=== PATIENT | female | born 1960 | race Two or more races ===

== ENCOUNTER 2023-08-23 09:19 | Inpatient (IN) | payer OTHER ==
[2023-08-23] MEDS ORDERED: ACETAMINOPHEN 1000 MG/100 ML BAG IVPB ONE (10:42)
[2023-08-23] MEDS ORDERED: ONDANSETRON 4 MG/2 ML VIAL IVPUSH ONE (10:42)
[2023-08-23] MEDS ORDERED: ONDANSETRON 4 MG/2 ML VIAL ONE (11:00)
[2023-08-23] MEDS ORDERED: ACETAMINOPHEN INJECTION 100 ML IVPB ONE (11:00)
[2023-08-23 11:33] LABS: BASO % 0.4 % (0-2.0); EOS % 2.1 % (0-4.5); HEMATOCRIT 42.1 % (32.4-45.2); HEMOGLOBIN 14.5 GM/dL (10.7-15.3); LYMPH % 15.4 % (8-40); MCH 30.3 pg (25.7-33.7); MCHC 34.4 g/dl (32.0-36.0); MEAN PLT VOLUME 8.4 fl (7.5-11.1); MONO % 8.4 % (3.8-10.2); NEUT % 73.7 % (42.8-82.8); PLATELET COUNT 174 10^3/uL (134-434); RBC 4.78 M/mm3 (3.60-5.2); RDW 14.1 % (11.6-15.6); WHITE BLOOD COUNT 10.4 K/mm3 (4.0-10.0)
[2023-08-23 12:16] LABS: POTASSIUM 4.2 mmol/L (3.5-5.1)
[2023-08-23 12:17] LABS: ALBUMIN 3.3 g/dl (3.4-5.0); BLOOD UREA NITROGEN 16.3 mg/dL (7-18); MAGNESIUM 2.1 mg/dL (1.8-2.4)
[2023-08-23 12:20] LABS: CREATININE 0.9 mg/dL (0.55-1.3)
[2023-08-23 12:21] LABS: BILIRUBIN,TOTAL 0.8 mg/dL (0.2-1); TOT PROT 7.1 g/dl (6.4-8.2)
[2023-08-23 12:23] LABS: EPI CELLS 29 /uL (0-25.1); HYALINE CASTS 0 /uL (0-3.1); PH,URINE 6.5 (5.0-8.0); URINE APPEARANCE CLOUDY; URINE BACTERIA 268 /uL (0-1359); URINE BILIRUBIN NEGATIVE (NEGATIVE); URINE COLOR YELLOW; URINE GLUCOSE (UA) 3+ (NEGATIVE); URINE KETONE TRACE (NEGATIVE); URINE LEUK ESTERASE NEGATIVE (NEGATIVE); URINE NITRITE NEGATIVE (NEGATIVE); URINE PROTEIN 1+ (NEGATIVE); URINE RBC 175 /uL (0-23.9)
[2023-08-23 14:18] VITALS: BMI 36.4
[2023-08-23 14:36] LABS: URINE WBC 78.8 /uL (0-25.8)
[2023-08-23] MEDS ORDERED: PIPERACILLIN/TAZOB 4.5 GM 4.5 GM in DEXTROSE 5%-WATER - 100 ML IVPB ONE (14:36)
[2023-08-23] MEDS ORDERED: KETOROLAC TROMETHAMINE 15 MG/ML VIAL IVPUSH ONE (14:41)
[2023-08-23] MEDS ORDERED: PIPERACILLIN/TAZOB 4.5 GM 4.5 GM/100 ML BAG IVPB ONE (15:53)
[2023-08-23] MEDS ORDERED: KETOROLAC TROMETHAMINE 30 MG/1 ML VIAL ONE (15:53)
[2023-08-23] MEDS ORDERED: SODIUM CHLORIDE 1,000 ML IV SCH (16:00)
[2023-08-23 16:43] LABS: INR 1.04 (0.83-1.09); PROTHROMBIN TIME (PATIENT) 12.1 SEC (9.7-13.0)
[2023-08-23] MEDS ORDERED: ACETAMINOPHEN 1000 MG/100 ML BAG IVPB PRN (16:55)
[2023-08-23] MEDS: PIPERACILLIN/TAZOB 3.375 GM 3.375 GM in DEXTROSE 5%-WATER - 50 ML IVPB SCH ×2 (18:52→19:26)
[2023-08-23] MEDS ORDERED: INSULIN (NOVOLOG) ASPART 100 UNITS/ML 10ML VIAL ONE ×2 (18:55→21:45)
[2023-08-23] MEDS ORDERED: TAMSULOSIN HCL 0.4 MG CAP ONE ×2 (18:55→21:35)
[2023-08-23] MEDS: TAMSULOSIN HCL 0.4 MG CAP PO SCH ×2 (18:59→21:53)
[2023-08-23] MEDS: INSULIN ASPART SLIDING SCALE (NOVOLOG) 1 VIAL SQ SCH ×2 (19:05→21:53)
[2023-08-24] MEDS ORDERED: PIPERACILLIN/TAZOB 3.375 GM 3.375 GM/50 ML BAG IVPB ONE (01:30)
[2023-08-24] MEDS: PIPERACILLIN/TAZOB 3.375 GM 3.375 GM in DEXTROSE 5%-WATER - 50 ML IVPB SCH ×4 (01:54→22:40)
[2023-08-24] MEDS ORDERED: SODIUM CHLORIDE 1,000 ML IV SCH ×2 (06:15→11:25)
[2023-08-24] MEDS: INSULIN ASPART SLIDING SCALE (NOVOLOG) 1 VIAL SQ SCH ×4 (06:23→21:37)
[2023-08-24] MEDS ORDERED: INSULIN (NOVOLOG) ASPART 100 UNITS/ML 10ML VIAL ONE ×4 (06:26→21:32)
[2023-08-24 07:11] LABS: BASO % 0.4 % (0-2.0); EOS % 3.7 % (0-4.5); HEMATOCRIT 39.5 % (32.4-45.2); HEMOGLOBIN 13.4 GM/dL (10.7-15.3); LYMPH % 22.9 % (8-40); MCH 30.6 pg (25.7-33.7); MCHC 33.9 g/dl (32.0-36.0); MEAN CELL VOLUME 90.2 fl (80-96); MEAN PLT VOLUME 8.7 fl (7.5-11.1); MONO % 7.5 % (3.8-10.2); NEUT % 65.5 % (42.8-82.8); PLATELET COUNT 162 10^3/uL (134-434); RBC 4.38 M/mm3 (3.60-5.2); RDW 14.2 % (11.6-15.6); WHITE BLOOD COUNT 8.3 K/mm3 (4.0-10.0)
[2023-08-24 07:41] LABS: BLOOD UREA NITROGEN 20.9 mg/dL (7-18); CALCIUM 9.9 mg/dL (8.5-10.1)
[2023-08-24 07:42] LABS: MAGNESIUM 2.1 mg/dL (1.8-2.4)
[2023-08-24 07:44] LABS: PHOSPHOROUS 2.8 mg/dL (2.5-4.9)
[2023-08-24 07:46] LABS: BILIRUBIN,TOTAL 0.9 mg/dL (0.2-1); TOT PROT 6.6 g/dl (6.4-8.2)
[2023-08-24] MEDS ORDERED: TAMSULOSIN HCL 0.4 MG CAP PO SCH (08:30)
[2023-08-24] MEDS ORDERED: TAMSULOSIN HCL 0.4 MG CAP ONE (08:39)
[2023-08-24] MEDS ORDERED: ACETAMINOPHEN INJECTION 100 ML IVPB ONE (08:54)
[2023-08-24] MEDS ORDERED: PIPERACILLIN/TAZOB 3.375 GM 3.375 GM in DEXTROSE 5%-WATER - 50 ML IVPB SCH (10:00)
[2023-08-24] MEDS ORDERED: MIDAZOLAM HCL 2 MG/2 ML SINGLE DOSE VIAL ONE (10:08)
[2023-08-24] MEDS ORDERED: PROPOFOL 20 ML ONE (10:08)
[2023-08-24] MEDS ORDERED: oxyCODONE HCL 5 MG TABLET PO PRN ×2 (10:10→11:25)
[2023-08-24] MEDS ORDERED: PROMETHAZINE HCL 25 MG/1 ML VIAL IVPB PRN ×2 (10:10→11:25)
[2023-08-24] MEDS ORDERED: ONDANSETRON 4 MG/2 ML VIAL IVPUSH PRN ×2 (10:10→11:25)
[2023-08-24] MEDS ORDERED: KETOROLAC TROMETHAMINE 30 MG/1 ML VIAL ONE (10:11)
[2023-08-24] MEDS ORDERED: LIDOCAINE HCL/PF 2% SDV 5ML VIAL ONE (10:11)
[2023-08-24] MEDS ORDERED: LACTATED RINGERS SOLUTION 1,000 ML IV SCH ×2 (10:15→11:25)
[2023-08-24] MEDS ORDERED: PIPERACILLIN/TAZOBACTAM 3.375 GM VIAL IVPB ONE ×3 (10:20→10:30)
[2023-08-24] MEDS ORDERED: IOHEXOL 180 MG/1 ML ML IJ ONE ×2 (10:23→10:35)
[2023-08-24] MEDS ORDERED: SEVOFLURANE 250 ML BTL ONE (10:36)
[2023-08-24] MEDS ORDERED: ACETAMINOPHEN 1000 MG/100 ML BAG IVPB PRN (11:25)
[2023-08-24] MEDS ORDERED: PIPERACILLIN/TAZOB 3.375 GM 3.375 GM in DEXTROSE 5%-WATER - 50 ML IVPB ONE (18:00)
[2023-08-24] MEDS: TAMSULOSIN HCL 0.4 MG CAP PO SCH (21:37)
[2023-08-25] MEDS: metFORMIN HCL 500 MG TABLET (FP) PO SCH ×2 (06:26→17:00)
[2023-08-25] MEDS: INSULIN ASPART SLIDING SCALE (NOVOLOG) 1 VIAL SQ SCH ×4 (06:29→22:00)
[2023-08-25] MEDS ORDERED: GLIMEPIRIDE 2 MG TABLET PO SCH (07:00)
[2023-08-25] MEDS: ENALAPRIL MALEATE 5 MG TABLET PO SCH (09:13)
[2023-08-25] MEDS: TAMSULOSIN HCL 0.4 MG CAP PO SCH ×2 (09:14→22:02)
[2023-08-25 09:42] LABS: BASO % 0.5 % (0-2.0); HEMATOCRIT 38.7 % (32.4-45.2); HEMOGLOBIN 13.1 GM/dL (10.7-15.3); LYMPH % 31.9 % (8-40); MCH 30.5 pg (25.7-33.7); MCHC 33.9 g/dl (32.0-36.0); MEAN CELL VOLUME 89.8 fl (80-96); MEAN PLT VOLUME 8.7 fl (7.5-11.1); NEUT % 55.6 % (42.8-82.8); PLATELET COUNT 165 10^3/uL (134-434); RBC 4.31 M/mm3 (3.60-5.2); RDW 14.4 % (11.6-15.6); WHITE BLOOD COUNT 7.1 K/mm3 (4.0-10.0)
[2023-08-25 10:02] LABS: POTASSIUM 3.9 mmol/L (3.5-5.1)
[2023-08-25 10:04] LABS: ALBUMIN 2.9 g/dl (3.4-5.0); BLOOD UREA NITROGEN 11.5 mg/dL (7-18)
[2023-08-25 10:07] LABS: CREATININE 0.7 mg/dL (0.55-1.3)
[2023-08-25 10:08] LABS: BILIRUBIN,TOTAL 0.6 mg/dL (0.2-1); TOT PROT 6.3 g/dl (6.4-8.2)
[2023-08-25] MEDS ORDERED: INSULIN (NOVOLOG) ASPART 100 UNITS/ML 10ML VIAL ONE ×3 (11:19→21:39)
[2023-08-25] MEDS: CEFTRIAXONE 1 GM in DEXTROSE 5%-WATER - 50 ML IVPB SCH (19:58)
[2023-08-25] MEDS: PIPERACILLIN/TAZOB 3.375 GM 3.375 GM in DEXTROSE 5%-WATER - 50 ML IVPB SCH (20:30)
[2023-08-25] MEDS ORDERED: INSULIN (LEVEMIR) 100 UNITS/ML UNITS SQ SCH (22:00)
[2023-08-26] MEDS: INSULIN ASPART SLIDING SCALE (NOVOLOG) 1 VIAL SQ SCH ×2 (06:58→13:48)
[2023-08-26] MEDS: metFORMIN HCL 500 MG TABLET (FP) PO SCH (06:59)
[2023-08-26 07:08] VITALS: BP 137/89; PULSE 72; RESP 17; TEMP 97.7
[2023-08-26 09:49] LABS: BASO % 0.4 % (0-2.0); EOS % 3.7 % (0-4.5); HEMATOCRIT 40.6 % (32.4-45.2); HEMOGLOBIN 14.2 GM/dL (10.7-15.3); LYMPH % 27.3 % (8-40); MCH 31.2 pg (25.7-33.7); MCHC 34.9 g/dl (32.0-36.0); MEAN CELL VOLUME 89.2 fl (80-96); MEAN PLT VOLUME 8.4 fl (7.5-11.1); MONO % 8.5 % (3.8-10.2); NEUT % 60.1 % (42.8-82.8); PLATELET COUNT 189 10^3/uL (134-434); RBC 4.55 M/mm3 (3.60-5.2); RDW 14.3 % (11.6-15.6); WHITE BLOOD COUNT 7.3 K/mm3 (4.0-10.0)
[2023-08-26 09:59] LABS: POTASSIUM 3.9 mmol/L (3.5-5.1)
[2023-08-26 10:07] LABS: ALBUMIN 3.3 g/dl (3.4-5.0); BLOOD UREA NITROGEN 12.2 mg/dL (7-18); CALCIUM 10.4 mg/dL (8.5-10.1); CREATININE 0.7 mg/dL (0.55-1.3)
[2023-08-26 10:08] LABS: TOT PROT 7.3 g/dl (6.4-8.2)
[2023-08-26 10:09] LABS: BILIRUBIN,TOTAL 0.6 mg/dL (0.2-1)
[2023-08-26] MEDS: TAMSULOSIN HCL 0.4 MG CAP PO SCH (10:23)
[2023-08-26] MEDS: ENALAPRIL MALEATE 5 MG TABLET PO SCH (10:25)
[2023-08-26] MEDS: CEFTRIAXONE 1 GM in DEXTROSE 5%-WATER - 50 ML IVPB SCH (10:26)
[2023-08-26] MEDS ORDERED: CEPHALEXIN MONOHYDRATE 500 MG CAPSULE (UD) PO SCH (12:00)
[2023-08-26] MEDS ORDERED: INSULIN (NOVOLOG) ASPART 100 UNITS/ML 10ML VIAL ONE (12:16)
== END 2023-08-26 02:05 | disposition home or self-care (01) | DRG 661 ==
LOC: JER 09:19 → JERBED 15:09 → J8W 08-24 15:10
PROVIDERS: ADMIT Internal Medicine; ATTEND Internal Medicine
PROC: 0T778DZ Dilation of Left Ureter with Intraluminal Device, Via Natural or Artificial Opening Endoscopic (ICD-10-PCS; principal; 2023-08-24 10:00)
DX: N13.6 Pyonephrosis (principal); I10 Essential (primary) hypertension; R50.9 Fever, unspecified; B95.1 Streptococcus, group B, as the cause of diseases classified elsewhere; E11.65 Type 2 diabetes mellitus with hyperglycemia; E83.52 Hypercalcemia; E66.9 Obesity, unspecified; Z68.36 Body mass index [BMI] 36.0-36.9, adult
CPT/HCPCS: 0241U-QW; 36415; 71045-TC-FY; 74177-TC; 76000-TC-FY; 80053; 81003; 82962; 83036; 83690; 83735; 83970; 84100; 85025; 85610; 85730; 86850; 86900; 86901; 87040; 87077; 87086; 93005; 93010; 94760; 99285-25; C2617; Q9967

== ENCOUNTER 2023-10-25 09:26 | Emergency (ER) | payer OTHER ==
[2023-10-25 09:30] VITALS: BMI 28.3
[2023-10-25 10:29] VITALS: TEMP 98.2
[2023-10-25 10:29] LABS: BASO % 0.3 % (0-2.0); EOS % 1.2 % (0-4.5); HEMATOCRIT 41.1 % (32.4-45.2); HEMOGLOBIN 14.5 GM/dL (10.7-15.3); LYMPH % 12.5 % (8-40); MCH 31.3 pg (25.7-33.7); MCHC 35.2 g/dl (32.0-36.0); MEAN CELL VOLUME 88.9 fl (80-96); MEAN PLT VOLUME 8.6 fl (7.5-11.1); MONO % 6.5 % (3.8-10.2); NEUT % 79.5 % (42.8-82.8); PLATELET COUNT 186 10^3/uL (134-434); RBC 4.62 M/mm3 (3.60-5.2); RDW 14.2 % (11.6-15.6); WHITE BLOOD COUNT 12.6 K/mm3 (4.0-10.0)
[2023-10-25 10:51] LABS: POTASSIUM 3.9 mmol/L (3.5-5.1)
[2023-10-25 10:53] LABS: CALCIUM 10.7 mg/dL (8.5-10.1)
[2023-10-25 10:54] LABS: ALBUMIN 3.8 g/dl (3.4-5.0)
[2023-10-25 10:57] LABS: CREATININE 0.5 mg/dL (0.55-1.3)
[2023-10-25 10:59] LABS: BILIRUBIN,TOTAL 0.4 mg/dL (0.2-1); TOT PROT 7.4 g/dl (6.4-8.2)
[2023-10-25] MEDS: SODIUM CHLORIDE 0.9% 500 ML INFUS.BAG IV ONE (11:39)
[2023-10-25 12:03] LABS: EPI CELLS 30 /uL (0-25.1); HYALINE CASTS 1 /uL (0-3.1); PH,URINE 7.5 (5.0-8.0); URINE APPEARANCE CLEAR; URINE BACTERIA 52 /uL (0-1359); URINE BILIRUBIN NEGATIVE (NEGATIVE); URINE COLOR YELLOW; URINE GLUCOSE (UA) NEGATIVE (NEGATIVE); URINE KETONE NEGATIVE (NEGATIVE); URINE LEUK ESTERASE 2+ (NEGATIVE); URINE NITRITE NEGATIVE (NEGATIVE); URINE PROTEIN 1+ (NEGATIVE); URINE RBC 1077 /uL (0-23.9); URINE WBC 123 /uL (0-25.8)
[2023-10-25 12:27] VITALS: BP 110/77; PULSE 80; RESP 16
== END 2023-10-25 12:29 | disposition home or self-care (01) ==
LOC: JER 09:26
DX: R42 Dizziness and giddiness (principal); R61 Generalized hyperhidrosis; R11.0 Nausea; Z20.822 Contact with and (suspected) exposure to COVID-19
CPT/HCPCS: 0241U-QW; 36415; 70450-TC; 71045-TC-FY; 80053; 81003; 83735; 84443; 84484; 85025; 87086; 93005; 93010; 99285-25